=== PATIENT | male | born 1955 | race Caucasian/White ===

== ENCOUNTER → 2018-01-28 | Outpatient (CLI) | payer SELFPAY ==
[2018-01-28 16:25] LABS: ANION GAP 13 (5-19); BLOOD UREA NITROGEN 19 mg/dL (7-20); CALCIUM 9.3 mg/dL (8.4-10.2); CARBON DIOXIDE 30 mmol/L (22-30); CHLORIDE 101 mmol/L (98-107); GLUCOSE 83 mg/dL (75-110); SODIUM 143.7 mmol/L (137-145)
== END ==
LOC: OD 14:42
PROVIDERS: ATTEND Family Medicine
DX: E78.5 Hyperlipidemia, unspecified (principal)
CPT/HCPCS: 36415; 80048